=== PATIENT | male | born 1960 | race Caucasian/White ===

== ENCOUNTER 2023-04-18 18:13 | Emergency (ER) | payer OTHER ==
[2023-04-18] MEDS ORDERED: Lidocaine 1% w/Epinephrine 1:100K 20 ML VIAL ONE (18:52)
[2023-04-18] MEDS ORDERED: Boostrix 0.5 ML (Tdap) VIAL (>/=7 yrs of age) ONE (19:10)
[2023-04-18] MEDS ORDERED: Amoxicillin/Potassium Clav 875 MG TAB ONE (21:05)
== END 2023-04-18 21:05 | disposition home or self-care (01) ==
LOC: MADERS 18:13
DX: S67.194A Crushing injury of right ring finger, initial encounter (principal); S67.196A Crushing injury of right little finger, initial encounter; S62.634B Displaced fracture of distal phalanx of right ring finger, initial encounter for open fracture; S62.636B Displaced fracture of distal phalanx of right little finger, initial encounter for open fracture; F17.210 Nicotine dependence, cigarettes, uncomplicated; I48.92 Unspecified atrial flutter; W23.0XXA Caught, crushed, jammed, or pinched between moving objects, initial encounter; Z23 Encounter for immunization; Z79.01 Long term (current) use of anticoagulants; Z79.899 Other long term (current) drug therapy
CPT/HCPCS: 12001; 12041; 29130; 90471; 90715